=== PATIENT | female | born 1980 | race African-American/Black ===

== ENCOUNTER 2018-04-17 05:30 | Day surgery (SDC) | payer MEDICAID ==
[~2018-04-17] VITALS: Ht 165.1 cm; Wt 65.8 kg
[~2018-04-17 05:30] MED LIST: MEDR150D9 IM
[2018-04-17 06:28] LABS: UCG SCREEN NEGATIVE
[2018-04-17] MEDS ORDERED: MIDAZOLAM HCL 2 MG/2 ML VIAL ONE (06:41)
[2018-04-17] MEDS ORDERED: FENTANYL CITRATE/PF 50MCG/ML 2ML VIAL ONE (06:41)
[2018-04-17] MEDS ORDERED: ROCURONIUM BROMIDE 10MG/ML VIAL 5ML IV ONE (06:41)
[2018-04-17] MEDS ORDERED: PROPOFOL 200MG/20ML VIAL IV ONE (06:46)
[2018-04-17] MEDS ORDERED: EPHEDRINE SULFATE 50MG/ML VIAL ONE (06:48)
[2018-04-17] MEDS ORDERED: SODIUM CHLORIDE 0.9% 10ML VIAL ONE (06:48)
[2018-04-17] MEDS ORDERED: BUPIVACAINE HCL/PF 0.5% (5MG/ML) 10ML ONE (06:54)
[2018-04-17] MEDS ORDERED: SKIN ADHESIVE 0.7 GM EA TOP ONE (06:54)
[2018-04-17] MEDS ORDERED: LACTATED RINGERS 1,000 ML IV SCH (07:00)
[2018-04-17] MEDS ORDERED: ESMOLOL HCL 10MG/ML 10ML VIAL IV ONE (07:47)
[2018-04-17] MEDS ORDERED: METOCLOPRAMIDE HCL 10MG/2ML VIAL ONE (07:56)
[2018-04-17] MEDS ORDERED: ONDANSETRON HCL 4MG/2ML INJ ONE (07:56)
[2018-04-17] MEDS ORDERED: DEXAMETHASONE 4MG/ML 1ML VIAL ONE (07:57)
[2018-04-17] MEDS: HYDROMORPHONE HCL/PF 2MG/ML CPJ IV PRN ×2 (08:50→09:00)
[2018-04-17 09:00] VITALS: BP 102/66
== END 2018-04-17 10:20 | disposition home or self-care (01) ==
LOC: OR 05:30
PROVIDERS: ATTEND Surgery
DX: N60.31 Fibrosclerosis of right breast (principal); F41.9 Anxiety disorder, unspecified
CPT/HCPCS: 19020; 81025; 87070; 87075; 87205; 88305; 88307; J1100; J1170; J2250; J2405; J2704; J2765; J3010; J3490